=== PATIENT | male | born 1995 | race Caucasian/White ===

== ENCOUNTER 2018-06-29 15:00 | Emergency (ER) | payer BC ==
--- NOTE | 2018-06-29 15:50 | EDPHY ---
H & P Time Seen by Provider: 06/29/18 15:49 HPI/ROS: CHIEF COMPLAINT: Vomiting and diarrhea HISTORY OF PRESENT ILLNESS: 21-year-old man started having symptoms this past Thursday started with nausea and vomiting followed by multiple episodes of diarrhea. No melena or red blood per rectum, today he did vomit and there is streaks of bright red blood. He developed generalized abdominal cramping afterwards, worse with oral intake. No recent foreign travel. Symptoms moderate to severe. REVIEW OF SYSTEMS: Eye: no change in vision ENT: no sore throat Cardiac: no chest pain or syncope Pulmonary: no cough or SOB Abdomen: HPI Musculoskeletal: no back pain Skin: no rash Neuro: no headache, has tingling and numbness in hands and feet Constitutional: no fever : no urinary symptoms A comprehensive 10 point review of systems is otherwise negative aside from elements mentioned in the history of present illness. PAST MEDICAL HISTORY: Negative, no previous abdominal surgery Social history: Here with mother, no recent foreign travel General Appearance: Alert and conversant, cooperative. Eyes: No scleral icterus. ENT, Mouth: Dry mucous membranes. Respiratory: Normal respiratory effort, breath sounds equal, lungs are clear to auscultation. Cardiovascular: Regular rate and rhythm. Gastrointestinal: Abdomen is soft and non tender. Normal bowel sounds, no rebound or guarding. Neurological: Alert, face symmetric, normal motor and sensory in extremities. Skin: Warm and dry, no rashes. Musculoskeletal: No peripheral edema. Psychiatric: Not agitated. Emergency Department course/MDM: Clinically dehydrated, more likely to be gastroenteritis or viral or food related than acute surgical process. Doubt appendicitis. Normal saline 2 L IV, Zofran 4 mg IV, labs to include CBC chemistry. 1645: Labs reviewed include creatinine 1.1, glucose 128, sodium normal, potassium slightly low at 3.3. Phenergan 12.5 mg IV for persistent nausea. Vomiting up small amounts of red blood more likely the Nasima-Mallory than acute upper gastrointestinal bleeding, tingling and numbness in extremities more likely from hyperventilation. 1753: Walked to the bathroom, still has nausea, 10 mg IV Reglan. Did urinate, received 3 L IV normal saline, should be euvolemic by now. 0: Feels better, no further vomiting, stable for discharge which the patient wants and I think is reasonable. Smoking Status: Never smoked Constitutional: Initial Vital Signs Temperature (C) 36.7 C 06/29/18 15:14 Heart Rate 60 06/29/18 15:14 Respiratory Rate 16 06/29/18 15:14 Blood Pressure 129/73 H 06/29/18 15:14 O2 Sat (%) 100 06/29/18 15:14 O2 Delivery Mode Room Air Allergies/Adverse Reactions: No Known Allergies Allergy (Unverified 06/29/18 15:13) Home Medications: Medication Instructions Recorded Ondansetron Odt [Zofran Odt] 4 mg PO Q4PRN #6 tab 06/29/18 Medical Decision Making - Data Points Laboratory Results: Laboratory Results 06/29/18 15:51 06/29/18 15:51 06/29/18 06/29/18 15:51 15:51 WBC 6.80 10^3/uL 10^3/uL (3.80-9.50) RBC 5.52 10^6/uL 10^6/uL (4.40-6.38) Hgb 17.5 g/dL g/dL (13.7-17.5) Hct 48.2 % % (40.0-51.0) MCV 87.3 fL fL (81.5-99.8) MCH 31.7 pg pg (27.9-34.1) MCHC 36.3 g/dL g/dL (32.4-36.7) RDW 11.7 % % (11.5-15.2) Plt Count 193 10^3/uL 10^3/uL (150-400) MPV 10.9 fL fL (8.7-11.7) Neut % (Auto) 64.8 % % (39.3-74.2) Lymph % (Auto) 24.6 % % (15.0-45.0) Delta % (Auto) 9.7 % % (4.5-13.0) Eos % (Auto) 0.0 % L % (0.6-7.6) Baso % (Auto) 0.6 % % (0.3-1.7) Nucleat RBC Rel Count 0.0 % % (0.0-0.2) Absolute Neuts (auto) 4.41 10^3/uL 10^3/uL (1.70-6.50) Absolute Lymphs (auto) 1.67 10^3/uL 10^3/uL (1.00-3.00) Absolute Monos (auto) 0.66 10^3/uL 10^3/uL (0.30-0.80) Absolute Eos (auto) 0.00 10^3/uL L 10^3/uL (0.03-0.40) Absolute Basos (auto) 0.04 10^3/uL 10^3/uL (0.02-0.10) Absolute Nucleated RBC 0.00 10^3/uL 10^3/uL (0-0.01) Immature Gran % 0.3 % % (0.0-1.1) Immature Gran # 0.02 10^3/uL 10^3/uL (0.00-0.10) Sodium 139 mEq/L mEq/L (135-145) Potassium 3.3 mEq/L L mEq/L (3.5-5.2) Chloride 96 mEq/L L mEq/L (97-110) Carbon Dioxide 26 mEq/l mEq/l (22-31) Anion Gap 17 mEq/L H mEq/L (6-14) BUN 27 mg/dL H mg/dL (7-23) Creatinine 1.1 mg/dL mg/dL (0.7-1.3) Estimated GFR > 60 Glucose 128 mg/dL H mg/dL (70-100) Calcium 10.4 mg/dL mg/dL (8.5-10.4) Medications Given: Discontinued Medications Sodium Chloride (Ns) 1,000 mls @ 0 mls/hr IV EDNOW ONE; Wide Open PRN Reason: Protocol Stop: 06/29/18 16:00 Last Admin: 06/29/18 16:01 Dose: 1,000 mls Sodium Chloride (Ns) 1,000 mls @ 0 mls/hr IV EDNOW ONE; Wide Open PRN Reason: Protocol Stop: 06/29/18 16:00 Last Admin: 06/29/18 16:25 Dose: 1,000 mls Sodium Chloride (Ns) 1,000 mls @ 0 mls/hr IV EDNOW ONE; Wide Open PRN Reason: Protocol Stop: 06/29/18 16:47 Last Admin: 06/29/18 16:58 Dose: 1,000 mls Metoclopramide HCl (Reglan Injection) 10 mg IVP EDNOW ONE Stop: 06/29/18 17:54 Last Admin: 06/29/18 17:57 Dose: 10 mg Ondansetron HCl (Zofran) 4 mg IVP EDNOW ONE Stop: 06/29/18 16:00 Last Admin: 06/29/18 16:01 Dose: 4 mg Promethazine HCl (Phenergan) 12.5 mg IVP ONCE ONE Stop: 06/29/18 16:29 Last Admin: 06/29/18 16:32 Dose: 12.5 mg Departure - Departure Clinical Impression: Vomiting and diarrhea, Dehydration Condition: Good Instructions: Dehydration (ED) Referrals: Daisy Maki MD [Medical Doctor] - As per Instructions Prescriptions: Ondansetron Odt [Zofran Odt] 4 mg PO Q4PRN #6 tab
[2018-06-29] MEDS ORDERED: ONDANSETRON 4 MG/2 ML VIAL ONE (15:59)
[2018-06-29] MEDS ORDERED: NS 1,000 ML IV ONE ×3 (15:59→16:46)
[2018-06-29] MEDS ORDERED: ONDANSETRON 4 MG/2 ML VIAL IVP ONE (15:59)
[2018-06-29] MEDS ORDERED: PROMETHAZINE HCL 25 MG/ML INJ IVP ONE (16:28)
[2018-06-29 16:32] LABS: PLATELET COUNT 193 10^3/uL (150-400)
[2018-06-29] MEDS ORDERED: METOCLOPRAMIDE 10 MG/2 ML VIAL IVP ONE (17:53)
[2018-06-29] MEDS ORDERED: ONDANSETRON 4MG PREPACK#2 BTL TAKEHOME ONE (19:11)
[2018-06-29 19:46] VITALS: BP 131/81
== END 2018-06-29 19:45 | disposition home or self-care (01) ==
DX: R11.2 Nausea with vomiting, unspecified (principal); E86.0 Dehydration; R19.7 Diarrhea, unspecified
CPT/HCPCS: 96374; J2405; J2550; J2765

== ENCOUNTER 2018-07-05 07:27 | Emergency (ER) | payer BC ==
[2018-07-05] MEDS ORDERED: NS 1,000 ML IV ONE (08:00)
[2018-07-05] MEDS ORDERED: METOCLOPRAMIDE 10 MG/2 ML VIAL IVP ONE (08:06)
--- NOTE | 2018-07-05 08:10 | EDPHY ---
H & P Stated Complaint: N/V/D abd crmping seen 06/27 Time Seen by Provider: 07/05/18 07:49 HPI/ROS: CHIEF COMPLAINT: Vomiting HISTORY OF PRESENT ILLNESS: 23-year-old male presents with persistent vomiting. Onset of vomiting, diarrhea and abdominal cramping 9 days ago. He was seen in this emergency department 1 week ago and given Zofran, Phenergan and Reglan IV with relief and nausea. Laboratory tests were remarkable only for mild hypokalemia. Since discharge home, intermittent vomiting has persisted , associated with abdominal cramping and decreased oral intake. Few episodes of diarrhea. No fever. REVIEW OF SYSTEMS: complete 10 point ROS reviewed and is negative except for the noted elements in the HPI Source: Patient, Family - Personal History Current Tetanus Diphtheria and Acellular Pertussis (TDAP): Yes - Medical/Surgical History Hx Asthma: No Hx Chronic Respiratory Disease: No Hx Diabetes: No Hx Cardiac Disease: No Hx Renal Disease: No Hx Cirrhosis: No Hx Alcoholism: No Hx HIV/AIDS: No Hx Splenectomy or Spleen Trauma: No Other PMH: denies - Social History Smoking Status: Never smoked Drug Use: Marijuana (Daily marijuana user) Additional Social History: Student at [employer] - Physical Exam Exam: General Appearance: Alert, pleasant, pale Eyes: Pupils equal and round, no conjunctival pallor ENT, Mouth: Mucous membranes moist Neck: Normal inspection Respiratory: Lungs are clear to auscultation Cardiovascular: Regular rate and rhythm Gastrointestinal: Abdomen is soft, diffuse tenderness Neurological: A&O, nonfocal, normal gait Skin: Warm and dry Extremities: Normal inspection Psychiatric: Slightly anxious Constitutional: Initial Vital Signs Temperature (C) 36.7 C 07/05/18 07:31 Heart Rate 78 07/05/18 07:31 Respiratory Rate 20 07/05/18 07:31 Blood Pressure 172/89 H 07/05/18 07:31 O2 Sat (%) 100 07/05/18 07:31 O2 Delivery Mode Room Air Allergies/Adverse Reactions: No Known Allergies Allergy (Verified 07/05/18 07:30) Home Medications: Medication Instructions Recorded Ondansetron Odt [Zofran Odt] 4 mg PO Q4PRN #6 tab 06/29/18 Promethazine HCl [Phenergan Rectal] 25 mg FL Q6 PRN #10 suppr 07/05/18 Medical Decision Making ED Course/Re-evaluation: This patient presents with persistent vomiting. Clinical presentation suggests cyclic vomiting syndrome. IV normal saline 1 L and Reglan IV given. 0900: Nausea has resolved, tolerating ice chips well. d/w pt, wants to go home to take a hot shower. Appears anxious, uncomfortable. Strongly encouraged the patient to stay for further treatment. Benadryl 25 mg IV and Toradol 30mg IV given. Pt took a hot shower and felt much better. On discharge, pt was calm, denies abd cramping or nausea. Tolerating oral fluids well. Abd soft and NT. Abd pain precautions given. f/u GI. Differential Diagnosis: Differential diagnosis includes though it is not limited to appendicitis, cholecystitis, diverticulitis, pyelonephritis, bowel perforation, small bowel obstruction. - Data Points Laboratory Results: Laboratory Results 07/05/18 07:55 07/05/18 07:55 Medications Given: Discontinued Medications Diphenhydramine HCl (Benadryl Injection) 25 mg IVP EDNOW ONE Stop: 07/05/18 09:19 Last Admin: 07/05/18 09:20 Dose: 25 mg Sodium Chloride (Ns) 1,000 mls @ 0 mls/hr IV ONCE ONE PRN Reason: Wide Open Stop: 07/05/18 08:01 Last Admin: 07/05/18 08:01 Dose: 1,000 mls Ketorolac Tromethamine (Toradol) 30 mg IVP EDNOW ONE Stop: 07/05/18 09:03 Last Admin: 07/05/18 09:08 Dose: 30 mg Metoclopramide HCl (Reglan Injection) 10 mg IVP EDNOW ONE Stop: 07/05/18 08:07 Last Admin: 07/05/18 08:26 Dose: 10 mg Departure - Departure Disposition: Home, Routine, Self-Care Clinical Impression: Vomiting Condition: Good Instructions: Acute Nausea and Vomiting (ED), Cyclic Vomiting Syndrome (ED) Additional Instructions: 1. Clear liquids for 24 hours. 2. Advance diet as tolerated. I suggest the BRAT diet to start: bananas, rice, applesauce and toast. 3. Return for worsening symptoms, persistent vomiting, abdominal pain, any concerns. Referrals: Nathanael Leo MD [Medical Doctor] - As per Instructions (Call to make an appointment. ) Prescriptions: Promethazine HCl [Phenergan Rectal] 25 mg FL Q6 PRN #10 suppr PRN Reason: vomiting
[2018-07-05 08:16] LABS: PLATELET COUNT 182 10^3/uL (150-400)
[2018-07-05] MEDS ORDERED: KETOROLAC 15 MG/1 ML SDV IVP ONE (09:02)
[2018-07-05 10:27] VITALS: BP 133/78
== END 2018-07-05 10:34 | disposition home or self-care (01) ==
DX: R11.10 Vomiting, unspecified (principal); R19.7 Diarrhea, unspecified; F12.90 Cannabis use, unspecified, uncomplicated
CPT/HCPCS: 96374; J1200; J1885; J2765